=== PATIENT | female | born 1985 | race Caucasian/White ===

== ENCOUNTER 2023-06-23 10:59 | Inpatient (IN) ==
[2023-06-23] MEDS ORDERED: OXYTOCIN 30 UNITS/500 ML BAG IV PRN ×2 (12:08→12:32)
[2023-06-23] MEDS ORDERED: LIDOCAINE 1% LOCAL 20 ML VIAL INFIL PRN (12:08)
[2023-06-23] MEDS ORDERED: miSOPROStoL 50 MCG TAB PO SCH (12:15)
[2023-06-23] MEDS: LACTATED RINGER'S 1,000 ML IV PRN ×3 (12:15→20:08)
[2023-06-23 12:34] LABS: Hematocrit (blood only) 33.4 % (37.0-47.0); Mean Corpuscular Hemoglobin 29.6 pg (25.0-34.0); Mean Corpuscular Hgb Conc 32.9 g/dL (32.0-36.0); Mean Platelet Volume 9.6 fL (9.4-12.4); Platelet Count 375 K/uL (130-400); RDW Coefficient of Variation 13.7 % (11.5-14.5); RDW Standard Deviation 44.4 fL (36.4-46.3); Red Blood Count 3.71 M/uL (4.20-5.40); White Blood Count 10.99 K/ul (4.8-10.8)
--- NOTE | 2023-06-23 12:56 | History & Physical Report ---
Date of Service June 23, 2023 Assessment & Plan (1) Obesity affecting in third trimester, antepartum: Plan: 37-year-old -1-3-1 at 39 weeks of gestation presenting today for scheduled induction of labor at term for class III obesity during , gestational diabetes on insulin, Vital signs stable afebrile, GBS negative, heart rate reassuring, Cervix favorable, Plan to admit, monitor, labs, oxytocin per protocol, Arom when able All questions were answered. (2) delivery: (3) Asthma: (4) Gestational diabetes: Admission and Anticipated Discharge Date Admission Date: June 23, 2023 History of Present Illness Primary Care Provider: NO PCP Patient is a 37-year-old -1-3-1 at 39 weeks of gestation who is being admitted for scheduled induction of labor at term for class III obesity and GDM A2, on insulin. Patient has no complaints. She denies contractions, leakage of fluid, vaginal bleeding. She reports good movements. Her has been complicated by 1. class III obesity, gained 1 pound during , growth has been w ithin normal limits, last ultrasound was 3 weeks ago and EFW was at 34th percentile. 2. GDM A2, on 25 units of long-acting insulin at night, 3. Mild asthma during , on inhalers as needed. GBS negative Allergies Allergy/AdvReac Type Severity Reaction Status Date / Time Penicillins Allergy Anaphylaxis Verified 06/23/23 11:36 Sulfa (Sulfonamide Allergy Anaphylaxis Verified 06/23/23 11:36 Antibiotics) Home Medications Medication Instructions Recorded Confirmed Type insulin glargine 100 unit/mL (3 25 unit subcut PM 06/23/23 06/23/23 History mL) subcutaneous pen (Lantus Solostar U-100 Insulin) vits no.124-ferrous fum 1 tab PO DAILY 06/23/23 06/23/23 History 27 mg iron-folic acid 800 mcg tablet ( Vitamin) Patient History Medical History (Updated 06/23/23 @ 12:55 by Javier Rose MD) Allergic rhinitis Anxiety Asthma Gestational diabetes delivery Thrombocytosis Surgical History H/O knee surgery H/O sinus surgery History of tonsillectomy [place] teeth removed Social History Smoking Status: Never smoker Hx Alcohol Use: No Hx Substance Use: No Preferred Language: Thai Communication Ability: Effective 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 Beliefs That Will Affect Care: None marital status: Current Living Situation: Spouse Other Information That Helps Us Care for You: No Feels Safe at Home: Yes Safety Concerns: Feels Safe At This Time Assistive Devices: None OB History VD 34+ weeks and 2016 3 SABs DIRECTOR MBA History No history of STDs, no history of chlamydia, gonorrhea, herpes Review of Systems as per Subjective / HPI Physical Exam Constitutional: WD/WN, vitals as above Gastrointestinal (Abdomen): normal bowel sounds, soft, nontender, no hepatosplenomegaly (Gravid) Genitourinary: normal external appearance OB Exam Abdomen: + vertex Manual OB Exam: + cervical dilation 2 cm, + cervical effacement 50% and + station -2 OB Exam Monitor Tracing: + external uterine monitor used and + category I Bedside ultrasound confirmed vertex presentation and heart rate Results & Data Vital Signs (Past 12 Hours) Vital Signs Temp Pulse Resp BP 06/23/23 11:38 36.9 C 20 06/23/23 11:24 92 H 129/68 Laboratory Results Lab Results 06/23/23 06/23/23 Range/Units 12:22 12:40 WBC 10.99 H (4.8-10.8) K/ul RBC 3.71 L (4.20-5.40) M/uL Hgb 11.0 L (12.0-16.0) g/dl Hct 33.4 L (37.0-47.0) % MCV 90.0 (80.0-100.0) fL MCH 29.6 (25.0-34.0) pg MCHC 32.9 (32.0-36.0) g/dL RDW Std Deviation 44.4 (36.4-46.3) fL RDW Coeff of Bryon 13.7 (11.5-14.5) % Plt Count 375 (130-400) K/uL MPV 9.6 (9.4-12.4) fL POC Glucose 87 (70-99) mg/dl
[2023-06-23 13:03] LABS: Albumin Globulin Ratio 1.1 (0.9-2); Albumin Level 3.3 gm/dl (3.4-5.0); Bilirubin,Total 0.3 mg/dl (0.2-1.0); Calcium 8.8 mg/dl (8.6-10.3); Creatinine Clr Calc Pharmacy 154.1 ml/min; Est GFR (African American) 131.9 ml/min; Est GFR (Non-African American) 113.8 ml/min; Globulin 3.1 gm/dl (2.5-4.0); Total Protein 6.4 gm/dl (6.0-8.3)
--- NOTE | 2023-06-23 15:25 | Obstetrical Progress Note ---
Date of Service June 23, 2023 Assessment & Plan Admission and Anticipated Discharge Date Admission Date: June 23, 2023 Subjective Patient is reevaluated. She feels mild ctxs Oxytocin at 8 miu/min VE; 3/ 50%/-2 FHR categ I Continue to monitor closely Results & Data Vital Signs (Past 12 Hours) Vital Signs Temp Pulse Resp BP 06/23/23 11:38 36.9 C 20 06/23/23 15:00 62 06/23/23 15:00 122/74 06/23/23 14:00 20 06/23/23 14:00 20 06/23/23 13:30 20 06/23/23 13:30 20 06/23/23 13:52 65 06/23/23 13:52 130/64 06/23/23 13:06 73 06/23/23 13:06 118/74 06/23/23 11:24 92 H 129/68
[2023-06-23] MEDS ORDERED: fentaNYL citrate PF 100 MCG/2 ML VIAL ONE (17:31)
[2023-06-23] MEDS ORDERED: fentaNYL 2MCG/ML ROPIVACAINE 1.25MG/ML 100 ML BAG EPI ONE (17:32)
[2023-06-23] MEDS ORDERED: BUPIVACAINE 0.25% PF 30 ML VIAL ONE (17:32)
[2023-06-23] MEDS ORDERED: ePHEDrine sulfate 50 MG/ML AMP ONE (17:32)
[2023-06-23] MEDS ORDERED: SODIUM CHLORIDE 0.9% PF INJ 10 ML VIAL ONE (17:32)
[2023-06-23] MEDS ORDERED: LIDOCAINE 2%/EPINEPHRINE 1:200,000 20 ML PF ONE (17:32)
[2023-06-23] MEDS ORDERED: SODIUM CHLORIDE 0.9% PF INJ 10 ML VIAL EPI STA (17:43)
[2023-06-23] MEDS ORDERED: LIDOCAINE 2%/EPINEPHRINE 1:200,000 20 ML PF EPI STA (17:43)
[2023-06-23] MEDS ORDERED: SODIUM CHLORIDE 0.9% PF INJ 10 ML VIAL EPI PRN (17:43)
[2023-06-23] MEDS ORDERED: ePHEDrine sulfate 50 MG/ML AMP IV PRN (17:43)
[2023-06-23] MEDS ORDERED: diphenhydrAMINE 50 MG/ML VIAL IV PRN (17:43)
[2023-06-23] MEDS ORDERED: ROPIVACAINE 0.5% PF 5 MG/ML 20 ML VIAL EPI PRN (17:43)
[2023-06-23] MEDS ORDERED: NALOXONE HCL 1 MG in SODIUM CHLORIDE 0.9% 1000ML 1,000 ML IV PRN (17:43)
[2023-06-23] MEDS ORDERED: LIDOCAINE 2% MPF LOCAL 5 ML VIAL EPI PRN (17:43)
[2023-06-23] MEDS ORDERED: ONDANSETRON INJ 2 MG/ML 2 ML VIAL IV PRN (17:43)
[2023-06-23] MEDS ORDERED: fentaNYL citrate PF 100 MCG/2 ML VIAL EPI STA (17:43)
[2023-06-23] MEDS ORDERED: BUPIVACAINE 0.25% PF 30 ML VIAL EPI PRN (17:43)
[2023-06-23] MEDS ORDERED: fentaNYL citrate PF 100 MCG/2 ML VIAL EPI PRN (17:43)
[2023-06-23] MEDS ORDERED: BUPIVACAINE 0.25% PF 30 ML VIAL EPI STA (17:43)
[2023-06-23] MEDS ORDERED: fentaNYL 2MCG/ML ROPIVACAINE 1.25MG/ML 100 ML BAG EPI PRN (17:43)
[2023-06-23] MEDS ORDERED: NALOXONE HCL 0.4 MG/1 ML VIAL/CARP IV PRN (17:43)
[2023-06-23] MEDS ORDERED: NALBUPHINE HCL INJ 10 MG/ML AMP IV PRN (17:43)
--- NOTE | 2023-06-23 17:45 | Anesthesiology Consultation ---
Date of Service June 23, 2023 Assessment & Plan ASA ASA3 Proposed Anesthesia Anesthesia Type: Labor Epidural Risk / Benefits Reviewed With: PT / POA / Parent / Guardian, Accepts Plan and Informed Consent Obtained History Height/Weight Height: 5 ft 3 in Weight: 122.924 kg Allergies Allergy/AdvReac Type Severity Reaction Status Date / Time Penicillins Allergy Anaphylaxis Verified 06/23/23 11:36 Sulfa (Sulfonamide Allergy Anaphylaxis Verified 06/23/23 11:36 Antibiotics) Medications Home Medications Medication Instructions Recorded Confirmed Last Taken insulin glargine 100 unit/mL (3 25 unit subcut PM 06/23/23 06/23/23 06/22/23 mL) subcutaneous pen (Lantus Solostar U-100 Insulin) vits no.124-ferrous fum 1 tab PO DAILY 06/23/23 06/23/23 06/22/23 27 mg iron-folic acid 800 mcg tablet ( Vitamin) Active Medications Generic Name Dose Route Start Last Admin Trade Name Freq PRN Reason Stop Dose Admin Lactated Ringer's 1,000 mls @ 150 mls/hr 06/23/23 12:08 06/23/23 15:21 Lr IV 06/25/23 12:07 150 mls/hr .[id number] PRN Administration L&D Protocol Protocol Oxytocin 30 units in 500 mls @ 12 mls/hr 06/23/23 12:32 06/23/23 16:00 Pitocin IV 06/25/23 12:31 0.72 units/hr .Q24H PRN 12 mls/hr Labor Induction/Augmentation Titration Protocol 0.72 UNITS/HR Ropivacaine 100 ml 06/23/23 17:43 06/23/23 18:12 Fentanyl 2mcg/Ml Ropivacaine 1.25mg/Ml 100 Ml Bag EPI 06/24/23 17:42 100 ml PRN PRN Administration Pain R/T Labor Protocol Past Medical History Medical History Allergic rhinitis Anxiety Asthma Gestational diabetes delivery Thrombocytosis Exercise / Class Metabolic Activity II 4-5 Yardwork/Stairs/Walk up hill Past Surgical History Surgical History H/O knee surgery H/O sinus surgery History of tonsillectomy [place] teeth removed Past Anesthesia History No Hx of Anesthesia Complications and No Family Hx of Anesthesia Complications History of PONV No Hx of PONV and No Hx of Motion Sickness Social History Smoking Status: Never smoker Hx Alcohol Use: No Hx Substance Use: No substance use type: does not use Review of Systems denies fever/cough/ colds/ chest pain/ SOB/ ONI denies ONI Physical Exam Vital Signs Last Vital Signs Temp 36.6 C 06/23/23 14:30 Pulse 68 06/23/23 18:23 Resp 18 06/23/23 17:53 BP 146/67 H 06/23/23 18:22 Pulse Ox 96 06/23/23 18:23 ENMT Mouth: no TMJ abnormality and no dentition abnormality Thyromental Distance: > or= 3.5 Finger Breadths Mallampati Class: II Neck neck extension not limited Respiratory normal respiratory effort; no respiratory distress Auscultation: lungs clear to auscultation bilaterally Cardiovascular Rate/Rhythm: regular rate and regular rhythm Neurologic moves all extremities Psychiatric Orientation: alert and oriented x 3 Testing Laboratory Results 06/23/23 12:22 06/23/23 12:22 Blood Type A Positive 06/23/23 12:22 Antibody Screen NEGATIVE 06/23/23 12:22 06/23/23 12:40 POC Glucose 87
--- NOTE | 2023-06-23 18:44 | Obstetrical Progress Note ---
Date of Service June 23, 2023 Assessment & Plan Admission and Anticipated Discharge Date Admission Date: June 23, 2023 Subjective Patient is reevaluated. She has received epidural for pain uncomfortable. heart rate category 1, toco with contractions every 3 to 4 minutes, oxytocin is at 12-bernardino international unit per minute. Cervix is 3 to 4 cm, 50% effaced, AROM, clear fluid with lanugo, Continue to monitor closely and adjust Pitocin dose accordingly. Results & Data Vital Signs (Past 12 Hours) Vital Signs Temp Pulse Resp BP Pulse Ox 06/23/23 16:02 20 06/23/23 11:38 36.9 C 20 06/23/23 18:38 98 06/23/23 18:38 76 06/23/23 18:33 96 06/23/23 18:33 68 06/23/23 18:28 96 06/23/23 18:28 69 06/23/23 18:24 68 06/23/23 18:24 163/93 H 06/23/23 18:23 96 06/23/23 18:23 68 06/23/23 18:22 146/67 H 06/23/23 18:20 70 06/23/23 18:20 148/65 H 06/23/23 18:18 97 06/23/23 18:18 72 06/23/23 18:18 144/80 H 06/23/23 18:15 68 06/23/23 18:15 140/74 06/23/23 17:53 18 06/23/23 17:53 18 06/23/23 18:13 98 06/23/23 18:13 71 06/23/23 18:14 77 06/23/23 18:14 134/73 06/23/23 18:12 76 06/23/23 18:12 136/80 06/23/23 18:10 71 06/23/23 18:10 146/74 H 06/23/23 18:08 97 06/23/23 18:08 78 06/23/23 18:08 150/83 H 06/23/23 18:08 93 06/23/23 18:08 84 06/23/23 18:06 76 06/23/23 18:06 145/80 H 06/23/23 18:03 98 06/23/23 18:03 78 06/23/23 17:58 100 06/23/23 17:58 69 06/23/23 17:54 93 06/23/23 17:54 75 06/23/23 17:53 99 06/23/23 17:53 66 06/23/23 16:30 16 06/23/23 16:30 16 06/23/23 17:48 100 06/23/23 17:48 69 06/23/23 15:00 20 06/23/23 15:00 20 06/23/23 17:43 99 06/23/23 17:43 62 06/23/23 17:38 99 06/23/23 17:38 63 06/23/23 14:30 20 06/23/23 14:30 36.6 C 20 06/23/23 16:01 61 06/23/23 16:01 100/59 L 06/23/23 15:00 62 06/23/23 15:00 122/74 06/23/23 14:00 20 06/23/23 14:00 20 06/23/23 13:30 20 06/23/23 13:30 20 06/23/23 13:52 65 06/23/23 13:52 130/64 06/23/23 13:06 73 06/23/23 13:06 118/74 06/23/23 11:24 92 H 129/68
--- NOTE | 2023-06-23 19:24 | Communication Note ---
Date of Service: June 23, 2023 pt with continued pain after epidural placement. will replace. first catheter removed with tip intact. sterile prep/drape/mask. l3-l4 identified. infi ltration with 2% lidocaine. 17 gauge touey needle advanced to rainer to ai at 8cm. easy catheter thread to 12cm. neg aspiration. 2% lido with epi 4cc bolused. negative IV/IT. catheter secured. divided doses of 7cc 0.25% bupivicaine given with vss. pt reports improvement in pain
--- NOTE | 2023-06-23 20:27 | Obstetrical Progress Note ---
Date of Service June 23, 2023 Assessment & Plan Admission and Anticipated Discharge Date Admission Date: June 23, 2023 Subjective Nursing team was unable to trace FHR and asked for FSE VE; 4-5cm/ 80%-1, coned head FSE is placed, FHR 140's Continue to monitor closely. Results & Data Vital Signs (Past 12 Hours) Vital Signs Temp Pulse Resp BP Pulse Ox 06/23/23 16:02 20 06/23/23 11:38 36.9 C 20 06/23/23 20:23 100 06/23/23 20:23 71 06/23/23 20:18 98 06/23/23 20:18 68 06/23/23 20:14 85 L 06/23/23 20:14 79 06/23/23 20:13 99 06/23/23 20:13 72 06/23/23 20:10 85 06/23/23 20:10 109/67 06/23/23 20:08 97 06/23/23 20:09 93 06/23/23 20:08 83 06/23/23 20:09 83 06/23/23 20:03 100 06/23/23 20:03 76 06/23/23 19:58 99 06/23/23 19:58 71 06/23/23 19:55 68 06/23/23 19:55 118/66 06/23/23 19:53 100 06/23/23 19:53 87 06/23/23 19:48 98 06/23/23 19:48 67 06/23/23 19:43 97 06/23/23 19:43 65 06/23/23 19:40 67 06/23/23 19:40 114/63 06/23/23 19:38 98 06/23/23 19:38 93 H 06/23/23 19:33 96 06/23/23 19:33 92 H 06/23/23 19:29 94 06/23/23 19:29 77 06/23/23 19:28 96 06/23/23 19:28 68 06/23/23 19:23 94 06/23/23 19:23 75 06/23/23 19:22 94 06/23/23 19:22 78 06/23/23 19:18 94 06/23/23 19:18 107 H 06/23/23 19:15 94 06/23/23 19:15 69 06/23/23 19:13 96 06/23/23 19:13 86 06/23/23 19:12 88 06/23/23 19:12 111/66 06/23/23 19:09 92 H 06/23/23 19:09 107/68 06/23/23 19:08 97 06/23/23 19:08 82 06/23/23 19:03 93 06/23/23 19:03 88 06/23/23 18:58 96 06/23/23 18:58 87 06/23/23 18:56 93 06/23/23 18:56 80 06/23/23 18:55 74 06/23/23 18:55 132/81 06/23/23 18:53 98 06/23/23 18:53 71 06/23/23 18:48 98 06/23/23 18:48 77 06/23/23 18:46 68 06/23/23 18:46 134/75 06/23/23 18:43 100 06/23/23 18:43 64 06/23/23 18:38 98 06/23/23 18:38 76 06/23/23 18:33 96 06/23/23 18:33 68 06/23/23 18:28 96 06/23/23 18:28 69 06/23/23 18:24 68 06/23/23 18:24 163/93 H 06/23/23 18:23 96 06/23/23 18:23 68 06/23/23 18:22 146/67 H 06/23/23 18:20 70 06/23/23 18:20 148/65 H 06/23/23 18:18 97 06/23/23 18:18 72 06/23/23 18:18 144/80 H 06/23/23 18:15 68 06/23/23 18:15 140/74 06/23/23 17:53 18 06/23/23 17:53 18 06/23/23 18:13 98 06/23/23 18:13 71 06/23/23 18:14 77 06/23/23 18:14 134/73 06/23/23 18:12 76 06/23/23 18:12 136/80 06/23/23 18:10 71 06/23/23 18:10 146/74 H 06/23/23 18:08 97 06/23/23 18:08 78 06/23/23 18:08 150/83 H 06/23/23 18:08 93 06/23/23 18:08 84 06/23/23 18:06 76 06/23/23 18:06 145/80 H 06/23/23 18:03 98 06/23/23 18:03 78 06/23/23 17:58 100 06/23/23 17:58 69 06/23/23 17:54 93 06/23/23 17:54 75 06/23/23 17:53 99 06/23/23 17:53 66 06/23/23 16:30 16 06/23/23 16:30 16 06/23/23 17:48 100 06/23/23 17:48 69 06/23/23 15:00 20 06/23/23 15:00 20 06/23/23 17:43 99 06/23/23 17:43 62 06/23/23 17:38 99 06/23/23 17:38 63 06/23/23 14:30 20 06/23/23 14:30 36.6 C 20 06/23/23 16:01 61 06/23/23 16:01 100/59 L 06/23/23 15:00 62 06/23/23 15:00 122/74 06/23/23 14:00 20 06/23/23 14:00 20 06/23/23 13:30 20 06/23/23 13:30 20 06/23/23 13:52 65 06/23/23 13:52 130/64 06/23/23 13:06 73 06/23/23 13:06 118/74 06/23/23 11:24 92 H 129/68
[2023-06-23] MEDS ORDERED: MINERAL OIL 30 ML UDC ONE (22:50)
[2023-06-24] MEDS: LACTATED RINGER'S 1,000 ML IV PRN (00:12)
[2023-06-24] MEDS ORDERED: HYDROCORTISONE ACETATE 25 MG SUPP PR PRN (00:26)
[2023-06-24] MEDS ORDERED: BENZOCAINE 20% SPRY 85 APPLN/85 GM CAN EXT PRN (00:26)
[2023-06-24] MEDS ORDERED: bisacodyL 10 MG SUPP PR PRN (00:26)
[2023-06-24] MEDS ORDERED: DIPHTHERIA/TETANUS/PERTUSSIS Vaccine (Tdap, Age 7+yrs) 0.5mL SYR/VL IM ONE (00:26)
[2023-06-24] MEDS ORDERED: MEASLES, MUMPS & RUBELLA VIRUS VIAL SQ ONE (00:26)
[2023-06-24] MEDS ORDERED: OXYTOCIN 30 UNITS/500 ML BAG IV PRN (00:26)
--- NOTE | 2023-06-24 00:30 | Delivery Summary ---
Vaginal Delivery Summary Date of Service June 24, 2023 Vaginal Delivery Summary Patient was found to be fluid dilated and desire to push. She pushed through 3 contractions and delivered the head without difficulty. There was a nuchal cord around the neck x1 which was reduced and the shoulders were delivered with minimal traction and the baby was handed to the mother where the mouth and nose were suctioned. The cord was clamped times and cut. Then the vagina and perineum were checked for lacerations. There were first- degree lacerations on the left labia and perineum at the posterior fourchette. The labial laceration was repaired with 3-0 Vicryl on SH needle in a running fas hion and excellent hemostasis was achieved. The perineal laceration was repaired with 2-0 Vicryl with [id number] stitches x3 and it was hemostatic. Rest of the vagina and perineum were intact. Then the placenta was found to be in the vagina, delivered spontaneously as intact and complete. Uterus was explored and upper segment was firm and well contracted and the lower segment was cleared of all clots and debris's. EBL was 100 mL. Mom and baby tolerated procedure well. The sponge, needle and instrument count correct x2. The baby was a viable male infant Apgars 7/9 and weight is pending. No complications happened and I was present during whole procedure.
[2023-06-24] MEDS: ACETAMINOPHEN 325 MG TAB PO PRN ×2 (08:24→15:55)
[2023-06-24] MEDS: FERROUS SULFATE 325 MG TAB PO SCH (08:25)
[2023-06-24] MEDS: PRENATAL VITAMIN 1 TAB PO SCH (08:25)
[2023-06-24] MEDS: DOCUSATE SODIUM 100 MG CAP PO SCH ×2 (08:25→21:10)
--- NOTE | 2023-06-24 08:42 | Anesthesia Procedure Note ---
Date of Service June 24, 2023 Anesthesia Post Epidural Note Vital Signs Vital Signs: Temp Pulse Resp BP Pulse Ox 37.0 C 91 H 18 138/71 93 06/24/23 03:00 06/24/23 02:45 06/24/23 03:00 06/24/23 02:45 06/24/23 00:24 Notes Mental Status: alert / awake / arousable and participated in evaluation Patient Amnestic to Procedure: No Nausea / Vomiting: adequately controlled Pain: adequately controlled Airway Patency, RR, SpO2: stable & adequate BP & HR: stable & adequate Hydration State: stable & adequate Neuraxial Anesthesia: was administered and sensory block resolved Anesthetic Complications: no major complications apparent and Pt Satisfied with anesthetic care Epidural: Removed without complications and With tip intact
[2023-06-24] MEDS: IBUPROFEN 600 MG TAB PO PRN ×2 (13:18→21:10)
[2023-06-25] MEDS: ACETAMINOPHEN 325 MG TAB PO PRN (00:08)
[2023-06-25] MEDS: IBUPROFEN 600 MG TAB PO PRN ×2 (06:21→10:43)
[2023-06-25 06:28] LABS: Hematocrit (blood only) 28.2 % (37.0-47.0); Hemoglobin 9.4 g/dl (12.0-16.0); Mean Corpuscular Hemoglobin 29.9 pg (25.0-34.0); Mean Corpuscular Hgb Conc 33.3 g/dL (32.0-36.0); Mean Corpuscular Volume 89.8 fL (80.0-100.0); Mean Platelet Volume 9.8 fL (9.4-12.4); Platelet Count 316 K/uL (130-400); RDW Standard Deviation 45.2 fL (36.4-46.3); Red Blood Count 3.14 M/uL (4.20-5.40); White Blood Count 12.51 K/ul (4.8-10.8)
[2023-06-25] MEDS: DOCUSATE SODIUM 100 MG CAP PO SCH (07:34)
[2023-06-25] MEDS: PRENATAL VITAMIN 1 TAB PO SCH (07:34)
[2023-06-25] MEDS: FERROUS SULFATE 325 MG TAB PO SCH (07:34)
--- NOTE | 2023-06-25 08:52 | Obstetrical Progress Note ---
Date of Service June 25, 2023 Assessment & Plan (1) Normal course: PPD #2 pt doing well d/c home with instrcuion Subjective Ambulation: ambulating normally Voiding: no voiding problems Passing Gas:: Yes Diet Tolerance:: regular diet Lochia:: Small Feeding Type:: breast feeding Review of Systems All systems reviewed & are unremarkable except as noted in HPI & below Physical Exam Constitutional WD/WN, vitals as above well developed and well nourished Eyes PERRL, conjunctivae normal, anicteric sclerae Neck trachea midline, no thyromegaly Respiratory normal respiratory effort, lungs clear to auscultation Auscultation: no crackles, no rales and no wheezes Cardiovascular RRR, no murmur, no edema Gastrointestinal (Abdomen) normal bowel sounds, soft, nontender, no hepatosplenomegaly Uterus is below umbilicus Musculoskeletal no cyanosis or clubbing, extremities motor strength 5/5 Skin no rashes, warm and dry Neurologic patellar DTR's 2+ bilat, sensation intact Psychiatric A+Ox3, euthymic affect Genitourinary normal external appearance Results & Data Vital Signs (Past 12 Hours) Vital Signs Temp Pulse Resp BP Pulse Ox O2 Del Method 06/25/23 07:45 36.5 C 80 18 104/75 97 Room Air 06/24/23 23:55 36.6 C 66 17 101/63 96 Room Air 06/24/23 20:55 36.7 C 66 17 133/83 95 Room Air
[2023-06-25] MEDS ORDERED: bisacodyL 5 MG TABEC PO SCH (20:00)
== END 2023-06-25 11:45 | disposition home or self-care (01) | DRG 807 ==
LOC: 4S1 10:59 → 4E2 06-24 03:01